=== PATIENT | male | born 1990 | race Caucasian/White ===

== ENCOUNTER 2017-06-07 02:05 | Inpatient (IN) | payer OTHER ==
[~2017-06-07] VITALS: Ht 177.8 cm; Wt 149.7 kg
--- NOTE | ~2017-06-07 | HC ---
[facility] [place] [address] CONSULTATION Name: GA FRANKEL Room #: 361-P [facility] IN ..#: [id number] Admission: 06/07/17 Attend Phys: Gera Mckeon MD Discharge: Date of : 89 Report #: [id number] THIS REPORT FOR: //name// CC: DENIS physician/PCP Gera Mckeon REASON FOR CONSULTATION: I was asked to evaluate concerning lower extremity soft tissue infection and cardiomyopathy. HISTORY OF PRESENT ILLNESS: The patient is a 27-year-old IV drug abuser who presents with increasing shortness of breath for the last month, along with this he has had increased lower extremity edema. He has developed ulcers to both lower extremities, his scrotum as well as several lesions to his head and upper extremities. No documented fever, chills or sweats. He notes that he had a gastrointestinal type infection about 6 weeks ago with some nausea, vomiting and diarrhea along with fever and chills. This was a short-lived illness. No other family members were affected. He does inject methamphetamines and heroin. Most of his wounds have developed in his lower extremities where he injects most of the time. No family history of coronary artery disease. No history of cocaine use. He states that he was HIV negative in the past. ALLERGIES: None known. MEDICATIONS: None prior to his admission, now on vancomycin. PAST MEDICAL HISTORY: Unremarkable. FAMILY HISTORY: Hypertension. SOCIAL HISTORY: Homeless. IV drug use with meth and heroin. Occasional alcohol and smoker of cigarettes. Born and raised in [place]. No travel outside the [place]. REVIEW OF SYSTEMS: Denies any headache, cough or sputum production. He has heaviness in his chest, unable to lay flat in bed, unable to walk upstairs. He has been markedly limited in his activities over the last 3 weeks. Denies any fever, chills or sweats currently. No nausea or vomiting. No diarrhea. He has had 2 episodes of blood in his stool. No dysuria or frequency. PHYSICAL EXAMINATION: VITAL SIGNS: Afebrile, hemodynamically stable. GENERAL: He was alert and cooperative. He was in significant distress when he tried to move and was short of breath when he lay down. Large individual with 4+ edema in his lower extremities. HEENT: Mild dental caries, otherwise unremarkable. No petechiae evident. [address] [address] CONSULTATION Name: GA FRANKEL Room #: 361-P [facility] IN M.R.#: [id number] Admission: 06/07/17 Attend Phys: Gera Mckeon MD Discharge: Date of : 90 Report #: [id number] NECK: Supple. LUNGS: Decreased breath sounds in the bases. Few crackles were heard. HEART: Regular, tachycardic with gallop, no murmur. ABDOMEN: Obese, soft, mild diffuse tenderness, no hepatosplenomegaly or mass. Perianal examination unremarkable. I was unable to perform a rectal exam for the patient was too uncomfortable. Scrotum was swollen with fairly large wound mid portion. EXTREMITIES: Multiple skin lesions with cut out circular lesions to several areas of his lower extremity. NEUROLOGIC: Nonfocal. Pulses in his feet were normal. No peripheral emboli noted to his extremities. LABORATORY STUDIES: Sodium 138, potassium 3.3, bicarbonate 28, creatinine 1.1. AST 38, ALT 33, alkaline phosphatase 136, bilirubin 2, BNP 5775. Hemoglobin 10.6, white count 10.1, platelet count 315,000. Sedimentation rate 31. Blood cultures are pending. Chest x-ray: Cardiomegaly with basilar atelectasis. Ultrasound of the scrotum, thickened scrotal tissue. No abscess. Ultrasound of lower extremities negative for DVT. IMPRESSION AND PLAN: A 27-year-old with cardiomyopathy of new onset along with IV drug use and multiple soft tissue ulcerations. I am concerned about viral cardiomyopathy. Staphylococcal endocarditis is also possible, but no valvular lesion is evident. He has had no travel outside the [place]. Would make tick-borne cardiomyopathy less likely. He has skin and soft tissue infections from his injection. Recommend blood cultures, viral studies, cardiovascular workup, IV antibiotic therapy for both gram-positive and gram-negative organisms. Diuretics and drug counseling. Have to watch for withdrawal. <ELECTRONICALLY SIGNED> By: Louie Crockett MD 06/08/17 183 20 [id number] Louie Crockett MD /nt
--- NOTE | ~2017-06-07 | TEE ---
[facility] [address] [address] TRANSESOPHAGEAL ECHOCARDIOGRAM Name: GA FRANKEL Room #: 361-P [facility] IN [facility]#: [id number] Admission: 06/07/17 Attend Phys: Gera Mckeon MD Discharge: Date of : 89 Date of Service: 06/09/17 0854 Report #: [id number] THIS REPORT FOR: //name// APPROVED REPORT Study performed: 06/09/2017 08:01:01 EXAM: Comprehensive 2D, Doppler, and color-flow Echocardiogram Patient Location: [employer] [facility] Room #: 9 Status: routine BSA: 2.59 HR: 115 bpm BP: 116/74 mmHg Other Information Study Quality: Good Indications Congestive Heart Failure Echo Enhancing Agent Indication: Rule out Shunt Agent(s) / Amount(s) Used: Agitated Saline 7 cc Procedure After obtaining informed consent, patient underwent transesophageal echo in the [employer] [facility]. Type of Sedation : Conscious Sedation Sedation was administered by Bere Garduno RN. Sedation start time: 814 Case end Time: 825 Sedation was achieved intravenously with: Versed (3 mg) Fentanyl (50 mcg) Transesophageal probe was inserted and advanced into esophagus without difficulty by Han Coleman MD. Echo enhancement indication: R/O Septal defect. Echo enhancement agent administered: Agitated Saline The JOHNNY was performed without complications. Throughout the procedure, the blood pressure, pulse oximetry, cardiac rhythm, and rate were monitored. The patient tolerated the procedure without adverse effects. Recovery from conscious sedation was uneventful and vital signs were stable. [facility] [address] [place] [address] TRANSESOPHAGEAL ECHOCARDIOGRAM Name: GA FRANKEL Room #: 361-P [facility] IN ..#: [id number] Admission: 06/07/17 Attend Phys: Gera Mckeon MD Discharge: Date of : 89 Date of Service: 06/09/17 0854 Report #: [id number] Left Ventricle Left ventricle is dilated. There is normal left ventricular wall thickness. Left ventricular ejection fraction is severely decreased. LVEF is 15-20%. Right Ventricle Right ventricle is dilated. Right ventricle is hypokinetic. Atria Left atrium is dilated. No masses or clots in left atrium or left atrial appendage No shunting by contrast bubble injection Right atrium is dilated. Prominent eustacian valve Aortic Valve The aortic valve is normal in structure. No aortic regurgitation is present. There is no aortic valvular stenosis. Mitral Valve The mitral valve is normal in structure. Moderate mitral regurgitation. No evidence of mitral valve stenosis. Tricuspid Valve The tricuspid valve is normal in structure. Moderate tricuspid regurgitation. Pulmonic Valve The pulmonary valve is normal in structure. There is no pulmonic valvular regurgitation. Great Vessels The aortic root is normal in size. The ascending aorta is normal in size. Pericardium There is no pericardial effusion. <Conclusion> Left ventricular ejection fraction is severely decreased. LVEF is 15-20%. Right ventricle is dilated. Both atria are dilated. No masses or clots in left atrium or left atrial appendage No shunting by contrast bubble injection Normal tricuspid valve. Mild tricuspid insufficiency The aortic valve is normal in structure. No aortic regurgitation is [facility] [place] [address] TRANSESOPHAGEAL ECHOCARDIOGRAM Name: GA FRANKEL Room #: 361-P [facility] IN [facility]#: [id number] Admission: 06/07/17 Attend Phys: Gera Mckeon MD Discharge: Date of : 89 Date of Service: 06/09/1754 Report #: [id number] present. The mitral valve is normal in structure. Moderate mitral regurgitation. There is no pericardial effusion. <ELECTRONICALLY SIGNED> By: Han Coleman MD, [facility] 06/09/17853 3 3 Han Coleman MD, [facility] /INF
--- NOTE | ~2017-06-07 | EKG ---
[address] [place] [address] ELECTROCARDIOGRAM REPORT Name: TARUN FRANKELN Melva Room #: 361- ADM IN M.R.#: [id number] Admission: 06/07/17 Attend Phys: Gera Mckeon MD Discharge: Date of : 90 Report #: [id number] THIS REPORT FOR: //name// [facility] Test Date: 2017-06-07 Test Time: 18:16:42 Pat Name: GA FRANKEL Department: Room: 361 Gender: M Technology Administrator: Sarah BONILLA : 1990 Requested By: Rosangela Mack Order Number: [id number] MD: Han Coleman Measurements Intervals Schurz Rate: 122 P: 19 IN: 152 QRS: 53 QRSD: 77 T: QT: 312 QTc: 445 Interpretive Statements Sinus tachycardia Ventricular premature complex Poor R wave progression Nonspecific T wave abnormality No previous ECG available for comparison Electronically Signed On 06-08-2017 8:48:22 HOME AIDE by Han Coleman [email or web address] <ELECTRONICALLY SIGNED> By: Han Coleman MD, [facility] 06/08/17 0848 1816 15 Han Coleman MD, FACC /EPI
--- NOTE | ~2017-06-07 | 2DMMODE ---
[place] [address] [facility] [place] [address] 2 D/M-MODE ECHOCARDIOGRAM Name: FRANKELGA Room #: 361-P [facility] IN [facility]#: [id number] Admission: 06/07/17 Attend Phys: Gera Mckeon MD Discharge: Date of : 89 Date of Service: 06/07/17 1052 Report #: [id number] THIS REPORT FOR: //name// APPROVED REPORT Study performed: 06/07/2017 10:03:09 EXAM: Comprehensive 2D, Doppler, and color-flow Echocardiogram Patient Location: Bedside Room #: [facility] Status: routine BSA: 2.15 HR: 120 bpm BP: 147/95 mmHg Other Information Study Quality: Good Technically limited study due to uncooperative patient, inability to position patient. Indications LE edema, elevated BNP, IV drug user 2D Dimensions RVDd: 56.52 mm LVEF(%): 15.60 (>50%) IVSd: 12.62 (7-11mm) LVOT Diam: 24.18 (18-24mm) LVDd: 60.87 mm PWd: 11.84 (7-11mm) Ascending Ao: 29.11 (22-36mm) LVDs: 56.52 (25-40mm) Aortic Root: 29.82 mm IVC: 31.00 mm Singh's LVEF: 15.60 % Volumes Left Atrial Volume (Systole) Single Plane 4CH: 134.56 mL Single Plane 2CH: 106.72 mL LA ESV Index: 60.00 mL/m2 Aortic Valve AoV Peak Joni.: 0.81 m/s AO Peak Gr.: 2.59 mmHg LVOT Max P.31 mmHg LVOT Max V: 0.57 m/s YOEL Vmax: 3.27 cm2 Mitral Valve MV Decel. Time: 126.11 ms [facility] [place] [address] 2 D/M-MODE ECHOCARDIOGRAM Name: GA FRANKEL Room #: 361-P [facility] IN [facility]#: [id number] Admission: 06/07/17 Attend Phys: Gera Mckeon MD Discharge: Date of : 89 Date of Service: 06/07/17 1052 Report #: [id number] MV E Max Joni.: 1.29 m/s Pulmonary Valve PV Peak Joni.: 0.84 m/s PV Peak Gr.: 2.83 mmHg Tricuspid Valve TR Peak Joni.: 3.02 m/s RAP Estimate: 15.00 mmHg TR Peak Gr.: 36.36 mmHg PA Pressure: 51.00 mmHg Left Ventricle Left ventricle is dilated. There is normal left ventricular wall thickness. Left ventricular ejection fraction is severely decreased. LVEF is 15-20%. This study is not technically sufficient to allow evaluation of the LV diastolic function. Right Ventricle Right ventricle is dilated. Right ventricle is hypokinetic. Atria Left atrium is severely dilated. Right atrium is severely dilated. Aortic Valve The aortic valve is normal in structure. No aortic regurgitation is present. There is no aortic valvular stenosis. Mitral Valve The mitral valve is normal in structure. Moderate to severe mitral regurgitation with an eccentric jet No evidence of mitral valve stenosis. Tricuspid Valve The tricuspid valve is normal in structure. Moderate tricuspid regurgitation. Pulmonic Valve The pulmonary valve is normal in structure. Mild pulmonic regurgitation. Great Vessels The aortic root is normal in size. IVC is dilated and collapses <50% with inspiration. Pericardium [facility] [address] [place] [address] 2 D/M-MODE ECHOCARDIOGRAM Name: GA FRANKEL Room #: 361-P [facility] IN ..#: [id number] Admission: 06/07/17 Attend Phys: Gera Mckeon MD Discharge: Date of : 89 Date of Service: 06/07/17 1052 Report #: [id number] There is no pericardial effusion. <Conclusion> Left ventricle is dilated. LVEF is 15-20%. Right ventricle is dilated. Right ventricle is hypokinetic. Left atrium is severely dilated. Right atrium is severely dilated. The aortic valve is normal in structure. The mitral valve is normal in structure. Moderate to severe mitral regurgitation with an eccentric jet The tricuspid valve is normal in structure. Moderate tricuspid regurgitation. There is no pericardial effusion. <ELECTRONICALLY SIGNED> By: Samir Lang MD 06/07/17 1052 51 51 Samir Lang MD /INF
[~2017-06-07 02:05] MED LIST: ATIVAN1 MG PO
[2017-06-07 02:08] VITALS: BP 129/83
[2017-06-07 02:58] LABS: ABSOLUTE NEUTROPHILS 6.9 thou/uL (1.4-8.2); BASOPHILS 0.8 % (0.0-2.0); EOSINOPHILS 1.8 % (0.0-3.0); HEMATOCRIT 34.9 % (42.0-52.0); HEMOGLOBIN 10.6 gm/dL (14.0-18.0); LYMPHOCYTES 22.3 % (24.0-44.0); MCH 22.6 pg (26.0-34.0); MCHC 30.5 g/dL (28.0-37.0); MCV 74.1 fL (80.0-100.0); MONOCYTES 6.8 % (1.0-8.0); PLATELET COUNT 315 thou/uL (150-400); POLYS 68.3 % (36.0-66.0); RDW 17.3 % (10.5-14.5); WBC 10.1 thou/uL (4.0-11.0)
[2017-06-07 02:59] LABS: CALCIUM 7.9 mg/dL (8.5-10.1); CREATININE 1.1 mg/dL (0.7-1.3); POTASSIUM 3.1 mmol/L (3.5-5.1)
[2017-06-07 04:55] LABS: ALBUMIN 2.2 g/dL (3.4-5.0); DIRECT BILIRUBIN 1.4 mg/dL (<0.1-0.3); TOTAL PROTEIN 7.3 g/dL (6.4-8.2)
[2017-06-07 05:15] VITALS: BP 117/80
[2017-06-07 05:25] LABS: ANISOCYTOSIS 2+
[2017-06-07 05:26] LABS: HYPOCHROMASIA 1+; LARGE PLATELETS RARE; MICROCYTES 1+; POLYCHROMASIA OCCASIONAL
[2017-06-07 05:30] VITALS: BP 119/83
[2017-06-07 07:55] VITALS: BP 147/95
[2017-06-07 13:56] VITALS: BP 151/95
[2017-06-07 18:43] VITALS: BP 131/102
[2017-06-08 11:18] VITALS: BP 123/86
[2017-06-08 19:59] VITALS: BP 112/71
[2017-06-09 02:49] LABS: HEMATOCRIT 32.8 % (42.0-52.0); HEMOGLOBIN 10.1 gm/dL (14.0-18.0); MCH 22.8 pg (26.0-34.0); MCHC 30.9 g/dL (28.0-37.0); MCV 73.6 fL (80.0-100.0); RBC 4.45 mil/uL (4.50-6.00); RDW 17.4 % (10.5-14.5); WBC 10.2 thou/uL (4.0-11.0)
[2017-06-09 03:02] LABS: ALBUMIN 2.2 g/dL (3.4-5.0); CALCIUM 8.2 mg/dL (8.5-10.1); CREATININE 1.2 mg/dL (0.7-1.3); POTASSIUM 3.8 mmol/L (3.5-5.1); TOTAL BILIRUBIN 1.4 mg/dL (<0.1-1.0); TOTAL PROTEIN 7.4 g/dL (6.4-8.2)
[2017-06-09 03:55] VITALS: BP 103/74
[2017-06-09 12:10] VITALS: BP 121/71
[2017-06-09 16:08] LABS: HEPATITIS C VIRUS AB 0.1 (0.0-0.9)
[2017-06-09 19:12] LABS: HEP B SURFACE Ab(ANTI-HBS Non Reactive (()); HEPATITIS B SURFACE AG Negative (Negative)
[2017-06-09 19:25] VITALS: BP 100/62
[2017-06-10 04:35] VITALS: BP 110/78
[2017-06-10 06:30] LABS: HEMATOCRIT 32.5 % (42.0-52.0); HEMOGLOBIN 9.8 gm/dL (14.0-18.0); MCH 22.3 pg (26.0-34.0); MCHC 30.3 g/dL (28.0-37.0); MCV 73.6 fL (80.0-100.0); RBC 4.41 mil/uL (4.50-6.00); RDW 17.5 % (10.5-14.5); WBC 10.3 thou/uL (4.0-11.0)
[2017-06-10 06:46] LABS: CALCIUM 8.6 mg/dL (8.5-10.1); POTASSIUM 3.4 mmol/L (3.5-5.1)
[2017-06-10 07:45] VITALS: BP 120/69
[2017-06-10] MEDS ORDERED: LISINOPRIL5 MG PO (12:00)
[2017-06-10] MEDS ORDERED: COREG3.125 MG PO (12:00)
[2017-06-10] MEDS ORDERED: LASIX 40 MG TAB40 M2 PO (12:01)
[2017-06-10] MEDS ORDERED: KEFLEX500 M1 PO (12:01)
[2017-06-10 12:36] VITALS: BP 120/69
[2017-06-12 18:06] LABS: ADENOVIRUS Negative (Negative); INFLUENZA A Negative (Negative); INFLUENZA B Negative (Negative); METAPNEUMOVIRUS Negative (Negative); PARAINFLUENZA 1 Negative (Negative); PARAINFLUENZA 2 Negative (Negative); PARAINFLUENZA 3 Negative (Negative); RHINOVIRUS Negative (Negative); RSV A Negative (Negative); RSV B Negative (Negative)
[2017-06-13 23:09] LABS: LYME ANTIBODY SCREEN* <0.91 ISR (0.00-0.90)
== END 2017-06-10 14:45 | disposition home or self-care (01) | DRG 602 ==
LOC: ER 02:05 → EROBS 04:38 → 3W 04:38
PROVIDERS: Emergency Medicine; Hospitalist; Specialist
PROC: B24BZZ4 Ultrasonography of Heart with Aorta, Transesophageal (ICD-10-PCS; principal; 2017-06-09)
DX: L03.116 Cellulitis of left lower limb (principal); I50.21 Acute systolic (congestive) heart failure; I42.0 Dilated cardiomyopathy; L02.416 Cutaneous abscess of left lower limb; L02.415 Cutaneous abscess of right lower limb; L03.115 Cellulitis of right lower limb; F17.210 Nicotine dependence, cigarettes, uncomplicated; J45.909 Unspecified asthma, uncomplicated; E87.6 Hypokalemia; F15.10 Other stimulant abuse, uncomplicated; F41.9 Anxiety disorder, unspecified; L98.499 Non-pressure chronic ulcer of skin of other sites with unspecified severity; Z23 Encounter for immunization; Z71.51 Drug abuse counseling and surveillance of drug abuser; Z82.49 Family history of ischemic heart disease and other diseases of the circulatory system
CPT/HCPCS: 10879